=== PATIENT | female | born 1985 | race American Indian/Alaskan Native ===

== ENCOUNTER 2018-11-12 09:15 | Day surgery (SDC) | payer BC ==
[2018-10-27 12:40] VITALS: BMI 43.2
[2018-11-12 10:04] VITALS: RESP 20
[2018-11-12 10:31] LABS: BASO # 0.02 K/mm3 (0.0-2.0); BASO % 0.5 % (0.0-3.0); EOS # 0.1 (0.0-0.7); EOS % 1.5 % (1.5-5.0); HEMOGLOBIN 9.9 g/dL (12.0-16.0); LYMPH # 1.9 (1.2-3.4); LYMPH % 47.2 % (22.0-35.0); MEAN CELL VOLUME 78.8 fl (80.0-105.0); MEAN CORPUSCULAR HEMOGLOBIN 23.6 pg (25.0-35.0); MEAN CORPUSCULAR HGB CONC 29.9 g/dl (31.0-37.0); MEAN PLATELET VOLUME 8.3 fl (7.0-11.0); MONO # 0.4 (0.1-0.6); MONO % 10.3 % (1.0-6.0); RBC 4.2 10^6/uL (3.5-6.1); RED CELL DISTRIBUTION WIDTH 18.7 % (11.5-14.5); WHITE BLOOD COUNT 4.1 10^3/uL (4.5-11.0)
[2018-11-12 10:51] LABS: INR 1.19; PARTIAL THROMBOPLASTIN TIME 33.3 Seconds (26.9-38.3); PROTHROMBIN TIME 13.5 SECONDS (9.4-12.5)
[2018-11-12 10:57] LABS: BLOOD UREA NITROGEN 6 mg/dL (7-21); CALCIUM 9.3 mg/dL (8.4-10.5); GFR NON-AFRICAN AMERICAN > 60
[2018-11-12] MEDS ORDERED: Lidocaine 1% Inj (20ml) ONE (14:01)
[2018-11-12] MEDS ORDERED: Midazolam 2 MG/2 ML VIAL ONE (14:01)
[2018-11-12] MEDS ORDERED: Midazolam 50 mg/10 ml Inj IVP ONE (14:28)
[2018-11-12] MEDS ORDERED: Oxycodone/Acetaminophen 5/325 mg Tab PO PRN (14:47)
[2018-11-12] MEDS ORDERED: Sodium Chloride 0.45% 1,000 ML IV SCH (15:00)
[2018-11-12 15:41] VITALS: BP 117/69; PULSE 95; TEMP 99.6; O2SAT 97
--- NOTE | 2018-11-12 20:24 | US ---
PROCEDURE: Ultrasound-guided left thyroid fine needle aspiration biopsy. CLINICAL HISTORY: Goiter. Dominant left lower pole nodule. Evaluate for malignancy PHYSICIAN(S): Kip Franco M.D. TECHNIQUE: The relative risks and indications for the procedure were explained to the patient and consent obtained. The patient was placed supine on the stretcher with the neck extended and preliminary sonography of the thyroid performed. This revealed a large multinodular goiter. There is a dominant heterogeneous nodule at the left lower pole. The neck was prepped and draped in the usual sterile fashion. Conscious sedation and monitoring were provided throughout the procedure by a nurse. 1% Xylocaine was used to anesthetize the skin and soft tissues at the access site. Three passes with a 22-gauge needle were performed under ultrasound guidance for fine needle aspiration of the large heterogeneous nodule nodule in the left lower thyroid. The slides were reviewed by pathology and deemed adequate. The patient tolerated the procedure well. IMPRESSION: 1. Ultrasound guided fine needle aspiration of a large heterogeneous nodule in the left lower thyroid. 2. Goiter
== END 2018-11-12 17:00 | disposition home or self-care (01) ==
LOC: SDS 09:15
PROVIDERS: ATTEND Radiology Vascular & Interventional Radiology
DX: E04.9 Nontoxic goiter, unspecified (principal); E04.1 Nontoxic single thyroid nodule
CPT/HCPCS: 10005; 36415; 80048; 84703; 85025; 85610; 85730; 88173; 88305; 99152; J2250 ×2; J2405; J3010; J7030